=== PATIENT | male | born 1985 | race African-American/Black ===

== ENCOUNTER 2017-09-22 21:28 | Emergency (ER) | payer MEDICAID ==
[~2017-09-22] VITALS: Ht 172.7 cm; Wt 113.4 kg
[2017-09-22 21:43] VITALS: BP_SYST 163
--- NOTE | 2017-09-22 22:58 | NUR ---
Patient to [facility] for evaluation. Side rails up. Report given to WILLIAM RAMOS.
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
--- NOTE | 2017-09-22 23:00 | NUR ---
ER IN [facility] examining patient.
[2017-09-22] MEDS ORDERED: ACETAMINOPHEN/CODEINE 300 MG-30 MG TABLET PO ONE (23:30)
[2017-09-22 23:49] VITALS: BP_SYST 151
--- NOTE | 2017-09-22 23:49 | NUR ---
Patient given written and verbal discharge instructions and verbalizes understanding. ER MD MORALES discussed with patient the results and treatment provided. Patient in stable condition. ID arm band removed. Rx of TRAMADOL given. Patient educated on pain management and to follow up with PMD. Pain Scale 2/10. Opportunity for questions provided and answered. Medication side effect fact sheet provided.
== END 2017-09-22 23:49 | disposition home or self-care (01) ==
LOC: SED 21:28
DX: M25.562 Pain in left knee (principal); Z87.828 Personal history of other (healed) physical injury and trauma; R03.0 Elevated blood-pressure reading, without diagnosis of hypertension; Z88.6 Allergy status to analgesic agent
CPT/HCPCS: 73564; 99284

== ENCOUNTER 2018-08-30 10:10 | Emergency (ER) | payer MEDICAID ==
[~2018-08-30] VITALS: Ht 175.3 cm; Wt 108.9 kg
[2018-08-30 10:30] VITALS: BP_SYST 137
--- NOTE | 2018-08-30 10:35 | NUR ---
AMBULATED TO BED 5
--- NOTE | 2018-08-30 10:40 | NUR ---
Patient c/o of lower lip swelling began 3 days ago. Patient does not have notable swelling. Patient stated no pain @ this time. No acute distress noted.
--- NOTE | 2018-08-30 10:53 | NUR ---
Dr. Doll @ bedside for examination.
[2018-08-30 11:08] VITALS: BP_SYST 137
--- NOTE | 2018-08-30 11:08 | NUR ---
Patient given written and verbal discharge instructions and verbalizes understanding. ER MD discussed with patient the results and treatment provided. Patient in stable condition. ID arm band removed. Rx of tramadol, prednisone, bactrim given. Patient educated on pain management and to follow up with PMD. Pain Scale 0/10 Opportunity for questions provided and answered. Medication side effect fact sheet provided.
== END 2018-08-30 11:08 | disposition home or self-care (01) ==
LOC: SED 10:10
DX: S00.561A Insect bite (nonvenomous) of lip, initial encounter (principal); Z88.6 Allergy status to analgesic agent; W57.XXXA Bitten or stung by nonvenomous insect and other nonvenomous arthropods, initial encounter; Y93.89 Activity, other specified; Y92.89 Other specified places as the place of occurrence of the external cause; Y99.8 Other external cause status
CPT/HCPCS: 99283